=== PATIENT | female | born 1980 | race Caucasian/White ===

== ENCOUNTER 2022-04-26 11:23 | Day surgery (SDC) | payer OTHER ==
[2022-04-26 12:03] VITALS: BMI 45.3
[2022-04-26] MEDS ORDERED: hydrALAZINE 20 MG/ML VIAL SLOW IVP PRN (12:05)
[2022-04-26] MEDS ORDERED: diphenhydrAMINE 50 MG CAP PO PRN (12:06)
[2022-04-26] MEDS ORDERED: Lidocaine 2% Viscous Solution 10 ML, Aluminum & Magnesium Hydroxide 30 ML SSW SCH (12:15)
[2022-04-26] MEDS ORDERED: diphenhydrAMINE 25 MG CAP PO PRN (12:30)
[2022-04-26 12:42] LABS: #Eosinphils 0.1 10x3/uL (0.0-0.5); #Monocytes 0.8 10x3/uL (0.0-1.1); #Neutrophils 5.5 10x3/uL (1.5-8.4); %Basophils 0.4 % (0.0-2.0); %Eosinophils 0.9 % (0.0-6.0); %Lymphocytes 16.8 % (18.0-47.0); %Monocytes 10.2 % (0.0-10.0); %Neutrophils 71.2 % (40.0-75.0); Hemoglobin 9.7 g/dL (12.0-15.5); Mean Corpuscular HGB CONC 33.7 g/dL (32.0-36.0); Mean Corpuscular Hemoglobin 31.5 pg (27.0-33.0); Mean Corpuscular Volume 93.5 fl (81.6-98.3); Platelet Count 205 10x3/uL (150-450); RBC Distribution Width 14.8 % (11.5-14.5); Red Blood Cell (RBC) Count 3.08 10x6/uL (3.90-5.03); White Blood Cell (WBC) Count 7.7 10x3/uL (3.5-10.5)
[2022-04-26 13:05] LABS: ALT (SGPT) 14 U/L (8-55); AST (SGOT) 20 U/L (5-34); Albumin 3.3 g/dL (3.5-5.0); Alkaline Phosphatase 78 U/L (40-110); Anion Gap 12 mmol/L (10-20); BUN (Urea Nitrogen) 5 mg/dL (7.0-18.7); Bilirubin, Total 0.4 mg/dL (0.2-1.2); Calc. Creatinine Clearance 240 mL/min (70-130); Carbon Dioxide 21 mmol/L (22-29); Chloride 107 mmol/L (98-107); Estimated GFR 119; Globulin 3.2 g/dL (2.4-3.5); Glucose 83 mg/dL (70-105); Potassium 3.1 mmol/L (3.5-5.1); Protein, Total 6.5 g/dL (6.0-8.3); Sodium 137 mmol/L (136-145)
[2022-04-26 14:11] LABS: Creatinine, Urine 115.83 mg/dL (47-110)
== END 2022-04-26 14:25 | disposition home or self-care (01) ==
LOC: CSHLD/OP 11:23
PROVIDERS: ATTEND Student in an Organized Health Care Education/Training Program
DX: O99.613 Diseases of the digestive system complicating pregnancy, third trimester (principal); K21.9 Gastro-esophageal reflux disease without esophagitis; O09.523 Supervision of elderly multigravida, third trimester; O99.713 Diseases of the skin and subcutaneous tissue complicating pregnancy, third trimester; L23.7 Allergic contact dermatitis due to plants, except food; Z79.82 Long term (current) use of aspirin; Z79.899 Other long term (current) drug therapy; O99.333 Smoking (tobacco) complicating pregnancy, third trimester; F17.200 Nicotine dependence, unspecified, uncomplicated; O34.219 Maternal care for unspecified type scar from previous cesarean delivery; O99.213 Obesity complicating pregnancy, third trimester; E66.9 Obesity, unspecified; Z3A.37 37 weeks gestation of pregnancy
CPT/HCPCS: 36415; 80053; 82570; 84156; 85025; 99285